=== PATIENT | male | born 1945 | race Caucasian/White ===

== ENCOUNTER 2019-12-14 06:36 | Day surgery (SDC) | payer MEDICARE, BC ==
[~2019-12-14] VITALS: Ht 172.7 cm; Wt 85.0 kg
[2019-12-14] VITALS (12 sets, daily range): BP systolic 104–182; BP diastolic 53–91; PULSE 40–71; TEMP 98–98.8
[2019-12-14] MEDS ORDERED: ALTACE 10MG TAB10 MG PO (07:32)
[2019-12-14] MEDS ORDERED: ULTRAM 50MG TAB50 MG PO (07:33)
[2019-12-14] MEDS ORDERED: LIPITOR20 MG PO (07:33)
[2019-12-14] MEDS ORDERED: ASPIRIN E.C. 8181 MG PO (07:34)
[2019-12-14] MEDS ORDERED: MULTI VITAMINS1 TAB PO (07:34)
[2019-12-14] MEDS ORDERED: VITAMIN C500 MG PO (07:35)
[2019-12-14] MEDS ORDERED: OMEGA-31 SGL PO (07:39)
[2019-12-14] MEDS ORDERED: FIBER0.52 GM PO (07:39)
--- NOTE | 2019-12-14 13:34 | NUR ---
[facility] met with the patient and the patient's , Maria Elena to complete initial intake. The patient has a walker, a cane and is independent with ADLs. The patient's PCP is Dr. King and patient receives medications from [facility] or [facility] [place]. The patient does not have advanced directives in the EMR and was not interested in DPOA-HC form at this time. The patient reports he discharge home with Maria Elena providing transportation. There are no additional needs at this time.
--- NOTE | 2019-12-14 13:49 | NUR ---
PT TO ROOM 330 PER BED WITH REPORT FROM LAURITA JACKSON [email or web address]. PT IS A/O X3 LUNGS CLEAR, BOWEL SOUNDS HYPO, DRESSING TO RIGHT KNEE CDI WITH OCCLUSIVE DRESSING OVER INCISION.
--- NOTE | 2019-12-14 16:39 | NUR ---
PT VOIDED 500 MLS
--- NOTE | 2019-12-14 22:16 | NUR ---
Patient doing well tonight. alert and oriented. c/o moderate pain, prn norco given. patients HR is low, 44, and was reported to Bruce PANDEY, instructed to monitor. patient is asymptomatic. ambulated in wu with walker and standby assist. SCDs and RANCHO hose in place. IV to R FA infusing without issue. patient is voiding without issue. no further needs at this time. will continue to monitor.
--- NOTE | 2019-12-14 23:16 | NUR ---
patients HR, 38 per apical pulse. reported to Bruce PANDEY who requested hospitalist consult. Consulted Dr. Ortiz, EKG and labs done, EKG showed bigeminy. to consult cardiology in AM. no further needs at this time. will continue to monitor.
[2019-12-14 23:32] LABS: BASO # 0.1 (0.0-0.2); BASO % 0.5 % (0.0-2.0); EOS % 0.1 % (0-4.0); GRAN % 84.8 % (42.2-75.2); HEMATOCRIT 42.3 % (42.0-52.0); HEMOGLOBIN 14.1 g/dl (13.5-18.0); LYMPH % 8.5 % (20.0-51.0); MEAN CELL VOLUME 91 fl (80.0-100.0); MEAN CORPUSCULAR HEMOGLOBIN 31 pg (27.0-31.0); MEAN CORPUSCULAR HGB CONC 33 g/dl (33.0-37.0); MEAN PLATELET VOLUME 10.5 fl (7.4-10.4); MONO # 0.7 (0.1-0.6); MONO % 5.8 % (1.7-9.3); PLATELET COUNT 196 K/mm3 (130-400); RED BLOOD COUNT 4.63 M/mm3 (4.20-5.60); REDCELL DISTRIBUTION WIDTH-CV 13.3 % (11.5-14.5)
[2019-12-14 23:40] LABS: ALANINE AMINOTRANSFERASE 32 U/L (4-49); ALBUMIN 3.6 gm/dL (3.5-5.0); ALKALINE PHOSPHATASE 91 U/L (50-136); ANION GAP 7 mmol/L (7-16); AST,SGOT 49 U/L (15-37); BILIRUBIN,TOTAL 1.1 mg/dL (0.0-1.0); BLOOD UREA NITROGEN 17 mg/dL (9-20); CALCIUM 8.6 mg/dL (8.4-10.2); CARBON DIOXIDE 26 mmol/L (22-30); CHLORIDE 107 mmol/L (98-107); CREATININE, serum 1.09 (0.66-1.25); GLUCOSE 157 mg/dL (74-106); MAGNESIUM 1.8 mg/dL (1.6-2.3); POTASSIUM 4.1 mmol/L (3.4-5.0); SODIUM 140 mmol/L (137-145); TOTAL PROTEIN 6.4 gm/dL (6.4-8.2)
[2019-12-14 23:59] LABS: TROPONIN-I < 0.012 ng/mL (0.000-0.035)
[2019-12-15 04:04] VITALS: BP 157/62; PULSE 86; TEMP 98.9
[2019-12-15 07:32] VITALS: BP 143/53; PULSE 89; TEMP 98.1
--- NOTE | 2019-12-15 08:21 | NUR ---
PT UP TO SINK FOR AM CARES WITH [facility]BA[facility]1. DR EDGE ROUNDED AND WILL DISCHARGE PATIENT LATER TODAY. DRESSING TO LEFT HIP CDI.
[2019-12-15 11:59] VITALS: BP 131/54; PULSE 70; TEMP 99.4
[2019-12-15] MEDS ORDERED: TOPROL XL 25MG25 MG PO (12:01)
--- NOTE | 2019-12-15 15:45 | NUR ---
Vehicle Cost Engineer and RENETTA Daniel-ROSETTE met with the patient to present and explain HUBBARD form. Patient verbalized understanding then provided signature. SW placed original in chart and provided copy to patient.
--- NOTE | 2019-12-15 16:12 | NUR ---
DISCHARGE INSTRUCTIONS REVIEWED WITH PATIENT AND FAMILY. PT TAKEN TO FRONT VIA WHEEL CHAIR.
== END 2019-12-15 16:14 | disposition home or self-care (01) ==
LOC: JCC 06:36 → SDCO 06:36 → JCC 06:36 → EDSTATUS 10:00 → JCC 10:00 → SDCO 12-15 16:14 → JCC 12-15 16:14
PROVIDERS: Internal Medicine
DX: M16.12 Unilateral primary osteoarthritis, left hip (principal); I10 Essential (primary) hypertension; I25.2 Old myocardial infarction; I25.10 Atherosclerotic heart disease of native coronary artery without angina pectoris; E78.5 Hyperlipidemia, unspecified; G47.33 Obstructive sleep apnea (adult) (pediatric); F17.210 Nicotine dependence, cigarettes, uncomplicated; Z99.89 Dependence on other enabling machines and devices; Z79.899 Other long term (current) drug therapy; Z90.49 Acquired absence of other specified parts of digestive tract; Z79.82 Long term (current) use of aspirin; Z83.3 Family history of diabetes mellitus
CPT/HCPCS: 99223; 99231-AI; A9284; C1776; J0690; J2250; J2370; J2405; J2704; J3010; J7030; J7042; J7120